=== PATIENT | female | born 1980 | race Two or more races ===

== ENCOUNTER 2017-01-22 21:26 | Emergency (ER) | payer MEDICAID ==
[~2017-01-22 21:26] MED LIST: BUPROPION; CLONIDINE TD; EFFEXOR XR75 M1 PO; KLONOPIN1 M1 PO; NEURONTIN300 M1 PO; PROTONIX40 M2 PO; SERTRALINE HCL100 M5 PO; TRAZODONE HCL50 M1 PO; VENTOLIN HFA18 G2 PO; XANAX0.25 M1 PO; [UNRECOGNIZED DRUG - OTHER]
[2017-01-22] MEDS ORDERED: SERTRALINE HCL100 M5 PO (21:55)
[2017-01-22] MEDS ORDERED: NEURONTIN300 M1 PO (21:55)
[2017-01-22] MEDS ORDERED: TRAZODONE HCL100 M1 PO (21:55)
[2017-05-16] MEDS ORDERED: ABILIFY5 M1 PO (19:59)
[2017-05-16] MEDS ORDERED: PRAZOSIN HCL1 GM PO (19:59)
== END 2017-01-22 23:16 ==
LOC: EDMED 21:26
DX: F32.9 Major depressive disorder, single episode, unspecified (principal); I10 Essential (primary) hypertension; Z90.710 Acquired absence of both cervix and uterus; Z98.51 Tubal ligation status

== ENCOUNTER 2017-04-04 19:11 | Emergency (ER) | payer MEDICAID ==
[~2017-04-04 19:11] MED LIST changes: +TRAZODONE HCL100 M1 PO
[2017-04-04] MEDS ORDERED: XANAX0.25 M1 PO (19:48)
[2017-04-04] MEDS ORDERED: VENLAFAXINE HC150 M2 PO (19:49)
[2017-04-04] MEDS ORDERED: KLONOPIN1 M1 PO (19:49)
[2017-04-04] MEDS ORDERED: CATAPRES0.1 M1 PO (19:49)
[2017-04-04] MEDS ORDERED: TRAZODONE HCL100 M1 PO (19:50)
[2017-05-16] MEDS ORDERED: ABILIFY5 M1 PO (19:59)
[2017-05-16] MEDS ORDERED: PRAZOSIN HCL1 GM PO (19:59)
== END 2017-04-04 21:25 ==
LOC: EDMED 19:11
DX: S51.811A Laceration without foreign body of right forearm, initial encounter (principal); F41.9 Anxiety disorder, unspecified; X78.9XXA Intentional self-harm by unspecified sharp object, initial encounter